=== PATIENT | male | born 1990 | race Caucasian/White ===

== ENCOUNTER 2019-09-27 13:46 | Outpatient (CLI) | payer SELFPAY | END 2019-09-27 13:47 | disposition critical access hospital (66) | LOC: EMS 13:46 | PROVIDERS: ATTEND Surgery | DX: R20.2 Paresthesia of skin (principal); F41.9 Anxiety disorder, unspecified | CPT/HCPCS: A0425; A0429 ==

== ENCOUNTER 2019-09-27 14:16 | Emergency (ER) | payer MEDICAID ==
[2019-09-27] MEDS ORDERED: ALPRAZolam 0.25 MG TABLET PO STA (14:55)
[2019-09-27 15:29] LABS: CREATININE 0.8 mg/dL (0.6-1.2)
--- NOTE | 2019-09-27 16:06 | ED Physician Documentation ---
History of Present Illness - Stated complaint Stated Complaint: ANXIETY - Chief complaint Chief Complaint: MHE - History obtained from History obtained from: Patient - Additonal information Additional information: Patient comes emergency department complaining of Whole body tingling and feeling like his heart is racing. Patient states he has just been generally stressed out, but has not had any specific stressful events in his life recently. He states that he is otherwise healthy as far as he knows, but that anxiety does run in his family. He denies any family history of a heart he denies any new medications. No recent substance use. Patient states he got to feeling especially bad today and felt as though he was going to . He states he has not been able to stop crying. No other complaints at this time. Patient states he has never had an episode like this previously. Review of Systems Ten Systems: 10 systems reviewed and negative Constitutional: reports: Reviewed and negative Eyes: reports: Reviewed and negative Ears: reports: Reviewed and negative Nose: reports: Reviewed and negative Throat: reports: Reviewed and negative Cardiac: reports: Reviewed and negative Respiratory: reports: Reviewed and negative GI: reports: Reviewed and negative : reports: Reviewed and negative Skin: reports: Reviewed and negative Musculoskeletal: reports: Reviewed and negative Neurologic: reports: Reviewed and negative Psychiatric: reports: Reviewed and negative Endocrine: reports: Reviewed and negative Immunocompromised: reports: Reviewed and negative PD PAST MEDICAL HISTORY - Past Medical History Past Medical History: No - Past Surgical History Past Surgical History: No - Present Medications Home Medications: Ambulatory Orders Medication Instructions Recorded Confirmed Alprazolam [Xanax] 0.5 mg PO BID PRN #12 tablet 09/27/19 - Allergies Allergies/Adverse Reactions: Allergies Allergy/AdvReac Type Severity Reaction Status Date / Time No Known Drug Allergies Allergy Verified 09/27/19 14:25 - Social History Does the pt smoke?: Yes Smoking Status: Current every day smoker PD ED PE NORMAL - Vitals Vital signs reviewed: Yes - General General: Alert and oriented X 3, No acute distress - HEENT HEENT: Atraumatic, PERRL, EOMI, Moist mucous membranes - Neck Neck: Supple, no meningeal sign - Cardiac Cardiac: RRR, No murmur, Strong equal pulses - Respiratory Respiratory: No respiratory distress, Clear bilaterally - Abdomen Abdomen: Soft, Non tender, Non distended - Derm Derm: Warm and dry - Extremities Extremities: No deformity - Neuro Neuro: Alert and oriented X 3, Other - Psych Psych: Other (Patient is mildly anxious appearing and tearful.) Results - Vitals Vitals: Vital Signs - 24 hr 09/27/19 16:15 Heart Rate 78 Respiratory 14 Rate Blood Pressure 143/78 H O2 Saturation 100 Oxygen O2 Source Room air - EKG (time done) 1502 Rate: Rate (enter#) (55) Rhythm: NSR - Labs Labs: Laboratory Tests 09/27/19 15:15 Sodium 137 Potassium 3.2 L Chloride 103 Carbon Dioxide 24 Anion Gap 10.0 BUN 12 Creatinine 0.8 Estimated GFR (MDRD) 113 Glucose 103 H Calcium 9.0 PD MEDICAL DECISION MAKING - ED course Complexity details: reviewed results, re-evaluated patient, considered differential, d/w patient ED course: Pt was worked up with EKG and BMP, both of which were unremarkable. I felt the pt most likely was suffering from anxiety and panic attacks. I have given the pt a dose of Xanax, which has helped his sx considerably. I will prescribe the pt Xanax for home. We have discussed the need for follow up and the usual indications for return. Departure - Departure Disposition: Home, Self Care Clinical Impression: Anxiety attack Condition: Stable Instructions: Anxiety Disorder Prescriptions: Alprazolam [Xanax] 0.5 mg PO BID PRN #12 tablet PRN Reason: Anxiety Discharge Date/Time: 09/27/19 16:19
[2019-09-27 16:16] VITALS: BP 143/78
== END 2019-09-27 16:19 | disposition home or self-care (01) ==
LOC: EDUNIT# → ED 14:16
DX: F41.9 Anxiety disorder, unspecified (principal); F17.200 Nicotine dependence, unspecified, uncomplicated
CPT/HCPCS: 36415; 80048; 93005; 99283; 99284; A9270